=== PATIENT | female | born 1965 | race Caucasian/White ===

== ENCOUNTER 2018-07-09 12:58 | Emergency (ER) | payer BC ==
[2018-07-09 13:19] LABS: #Basophils 0.1 thou/uL (0.0-0.2); #Lymphocytes 1.5 thou/uL (1.20-3.40); #Monocytes 0.3 thou/uL (0.11-0.59); #Neutrophils 10.9 thou/uL (1.40-6.50); %Basophils 0.5 % (0.0-1.0); %Eosinophils 0.2 % (0.0-10.0); %Lymphocytes 11.3 % (21.0-51.0); %Monocytes 2.5 % (0.0-10.0); %Neutrophils 85.5 % (42.0-75.0); Hemoglobin 14.8 g/dL (12.0-16.0); Mean Corpuscular HGB CONC 33.4 g/dL (32.0-36.0); Mean Corpuscular Hemoglobin 32.9 pg (27.0-31.0); Mean Corpuscular Volume 98.6 fL (78.0-98.0); Mean Platelet Volume 7.4 fL (7.4-10.4); Platelet Count 381 thou/uL (130-400); White Blood Cell (WBC) Count 12.8 thou/uL (4.8-10.8)
[2018-07-09 13:41] LABS: ALT (SGPT) 28 U/L (8-55); AST (SGOT) 30 U/L (5-34); Albumin 5.1 g/dL (3.5-5.0); Alkaline Phosphatase 67 U/L (40-150); Anion Gap 16 mmol/L (10-20); BUN (Urea Nitrogen) 14 mg/dL (9.8-20.1); Bilirubin, Total 0.7 mg/dL (0.2-1.2); Calc. Creatinine Clearance 0 mL/min (70-130); Calcium 10.1 mg/dL (7.8-10.44); Carbon Dioxide 22 mmol/L (22-29); Chloride 107 mmol/L (98-107); Estimated GFR-MDRD 82; Globulin 3.1 g/dL (2.4-3.5); Glucose 141 mg/dL (70-105); Lipase 23 U/L (8-78); Potassium 3.8 mmol/L (3.5-5.1); Protein, Total 8.2 g/dL (6.0-8.3); Sodium 141 mmol/L (136-145)
[2018-07-09 14:18] LABS: CKMB 6.1 ng/mL (0-6.6); Troponin I Less than 0.010 ng/mL (< 0.028)
[2018-07-09] MEDS ORDERED: Morphine 4 MG/ML VIAL ONE (14:32)
[2018-07-09] MEDS ORDERED: Ondansetron HCl/PF 4 MG/2 ML Vial ONE ×2 (14:32→15:59)
[2018-07-09] MEDS ORDERED: ISOVUE-370 76%-LOCM 1 ML ONE (15:16)
--- NOTE | 2018-07-09 16:00 | CT ---
CONTRAST ENHANCED ABDOMEN AND PELVIS CT: Date: 07/09/18 INDICATION: Abdominal pain with vomiting. FINDINGS: There is moderate distention of the gallbladder. The liver and spleen are unremarkable. No peripancre atic inflammation. There is no hydronephrosis or adrenal mass. The bowel is not reliably evaluated wi thout enteric contrast. No pneumoperitoneum or portal vein gas. No significant ascites. There is a gr ossly unremarkable appearance of the mildly distended unopacified urinary bladder. Within the visuali zed lung bases, no consolidation or effusion evident. Mild degenerative change in the regional skelet al structures seen. There is mild colonic diverticulosis. There is mild scattered vascular calcificat ion. IMPRESSION: 1. Moderate distention of the gallbladder. 2. Mild colonic diverticulosis, although the bowel is not reliably assessed without enteric contrast administration. 3. Additional details are described above. POS: IRENE
[2018-07-09 16:36] LABS: Bilirubin Negative (Negative); Blood, Urine Negative (Negative); Clarity CLEAR (Clear); Glucose, Urine (Dipstick) Negative (Negative); Leukocyte Negative (Negative); Nitrite Negative (Negative); Protein, Urine (Dipstick) Negative (Neg-Trace); Urobilinogen 0.2 mg/dL (0.2-1.0); pH, Urine 7.5 (5.0-9.0)
[2018-07-09 16:39] LABS: Specific Gravity, Urine 1.055 (1.002-1.036)
--- NOTE | 2018-07-09 18:05 | ULT ---
GALLBLADDER ULTRASOUND: History: Right upper quadrant pain. FINDINGS: Real-time imaging of the right upper quadrant shows a mildly distended gallbladder. No gallbladder wa ll thickening or stones are identified. The liver measures 17.8 cm in length, a focal finding. The co mmon duct is 3 mm. Technologist reports some mild tenderness over the gallbladder. Pancreas is fairly well imaged and unremarkable. Right kidney is normal in size and not obstructed. IMPRESSION: No evidence of gallstones. Mild tenderness is noted over the gallbladder region. POS: IRENE
== END 2018-07-09 17:05 | disposition home or self-care (01) ==
LOC: EEVIPCON 12:58 → ERS 12:58
DX: R11.2 Nausea with vomiting, unspecified (principal); R10.31 Right lower quadrant pain; F32.9 Major depressive disorder, single episode, unspecified; F41.9 Anxiety disorder, unspecified; Z79.899 Other long term (current) drug therapy
CPT/HCPCS: 36415; 74177; 76705; 80053; 81003; 82553; 83690; 84484; 85025; 93005; 96361; 96374; 96375; 96376; J2270; J2405

== ENCOUNTER → 2020-06-03 | Day surgery (SDC) | payer BC ==
[~2020-06-03] MED LIST: Bupivacaine PF 0.5% 30 ML VIAL ONE; Fentanyl 100 MCG/2 ML VIAL ONE; Glycopyrrolate 0.2 MG/ML 5 ML SYRINGE ONE; HYDROcodone/Acetaminophen 5/325 mg Tablet ONE; Ketorolac Tromethamine 30 MG/ML VIAL ONE; Lidocaine 1% PF 5 ML VIAL ONE; Lidocaine 1% w/Epinephrine 1:100K 20 ML VIAL ONE; Ondansetron PF 4 MG/2 ML Vial ONE; PROPOFOL 200 MG/20 ML VIAL ONE; Rocuronium Bromide 10 MG/ML (10ML VIAL) ONE
--- NOTE | 2020-06-03 18:04 | HP ---
HISTORY OF PRESENT ILLNESS: Milo Evans is a 54-year-old female with several years history of intermittent epigastric right upper quadrant pain, back radiation. On this occasion, it was very severe. She presented to the [facility]. In the ER, underwent CAT scan of the abdomen and pelvis revealing inflammatory changes about the gallbladder, suggestive of acute cholecystitis. Clinically, she had an exam for acute cholecystitis. She is transferred to this facility for laparoscopic cholecystectomy. She reports that at this facility in 2018, she was seen in the emergency room. Gallbladder ultrasound obtained, revealed no evidence of gallstones, but sonographic positive Ballesteros sign. CT scan of the abdomen and pelvis in June 2018, revealed distention of the gallbladder, diverticulosis. The patient apparently saw Gastroenterology, has had a colonoscopy. ALLERGIES: PENICILLIN. TOBACCO: None. ALCOHOL: Rarely. MEDICATIONS: Thyroid replacement. PAST SURGICAL HISTORY: Ectopic , transvaginal hysterectomy, and colonoscopy. PAST MEDICAL HISTORY: Hypothyroidism. REVIEW OF SYSTEMS: Ten-point noncontributory. FAMILY HISTORY: Noncontributory. PHYSICAL EXAMINATION: VITAL SIGNS: Blood pressure 128/72, heart rate 78, respiratory rate 18. HEENT: Sclerae nonicteric. SKIN: Nonjaundiced. LUNGS: Clear to auscultation. CARDIAC: Regular rate and rhythm without murmur or gallop. ABDOMEN: Soft. Tenderness in her epigastric right upper quadrant. Positive Ballesteros sign. Abdomen is nondistended EXTREMITIES: Unremarkable. No ankle edema. NEUROLOGIC: Intact. No focal deficits. Cranial nerves intact. LYMPHS: No lymphadenopathy in neck, axillae, or groins. SKIN: Nonjaundiced. LABORATORY DATA: Laboratories at [facility], [place]; CBC and comprehensive metabolic panel normal. Mild elevation of transaminases. Normal bilirubin. ASSESSMENT AND PLAN: History, exam, and CAT scan findings consistent with cholecystitis, gallstones are not seen, but she has inflammatory changes about the gallbladder and distended gallbladder, pericholecystic fluid, thickened gallbladder wall. We would recommend laparoscopic video cholecystectomy. She understands risks of infection, bleeding, visceral or biliary injury discussed and she consents. Job ID: [id number]
--- NOTE | 2020-06-03 19:44 | OP ---
DATE OF PROCEDURE: 06/03/2020 PREOPERATIVE DIAGNOSIS: Acute cholecystitis. POSTOPERATIVE DIAGNOSIS: Acute cholecystitis. PROCEDURE PERFORMED: Laparoscopic video cholecystectomy. ANESTHESIA: General, local 0.5% Marcaine 30 mL mixed with 1% Xylocaine with epinephrine 20 mL, 30 mL mixture used. DESCRIPTION OF PROCEDURE: The patient was taken to the operating room, where under general anesthesia, abdomen was prepared with ChloraPrep and draped in routine fashion. Local anesthetic was infiltrated in the skin and subcutaneous tissue about each port site. Infraumbilical incision made. Pneumoperitoneum to 15 mmHg obtained with a Veress needle, replaced with a 5 port, video laparoscope inserted. Right subxiphoid incision was made and 11 port placed, right subcostal incision made. At midclavicular and anterior axillary line, the 5 ports placed. Liver appeared to be normal grossly. The abdominal cavity was unremarkable. Gallbladder was acutely inflamed and edematous. Fundus was grasped and retracted cephalad. The infundibulum was grasped and retracted laterally. Cystic artery and duct dissected free. Critical view obtained. Cystic artery and duct doubly clipped proximally, divided, gallbladder dissected free from edematous attachments and gallbladder bed, removing the gallbladder and contents, submitted to Pathology, good hemostasis ensured in the liver bed. Irrigant and pneumoperitoneum were evacuated. All instruments were removed and all skin incisions were approximated with interrupted subdermal 4-0 Monocryl and [place] glue applied. Job ID: [id number]
== END ==
LOC: SDC/OP 17:18
PROVIDERS: ATTEND Specialist
PROC: 0FT44ZZ Resection of Gallbladder, Percutaneous Endoscopic Approach (ICD-10-PCS; principal; 2020-06-03)
DX: K80.12 Calculus of gallbladder with acute and chronic cholecystitis without obstruction (principal); E03.9 Hypothyroidism, unspecified; Z79.899 Other long term (current) drug therapy; Z80.0 Family history of malignant neoplasm of digestive organs
CPT/HCPCS: 88304; J1885; J2405; J2704; J3010; S0020

== ENCOUNTER 2020-08-06 13:28 | Outpatient (CLI) | payer BC ==
--- NOTE | 2020-08-06 15:40 | ULT ---
ULTRASOUND SOFT TISSUE CHEST WALL: HISTORY: Palpable abnormality at the sternoclavicular joint on the right. FINDINGS/IMPRESSION: Sonographic evaluation of the region of palpable concern demonstrates no evidence of mass. POS: OFF
== END 2020-08-06 13:29 | disposition home or self-care (01) ==
LOC: BICULT 13:28
PROVIDERS: ATTEND Family Medicine
DX: R22.1 Localized swelling, mass and lump, neck (principal)

== ENCOUNTER 2021-10-14 21:33 | Emergency (ER) | payer BC ==
[2021-10-14] MEDS ORDERED: Lorazepam 2 MG/ML VIAL ONE (22:58)
[2021-10-14] MEDS ORDERED: Ketorolac Tromethamine 30 MG/ML VIAL ONE (22:58)
[2021-10-14 23:23] LABS: #Lymphocytes 2.5 thou/uL (1.20-3.40); #Monocytes 0.6 thou/uL (0.11-0.59); #Neutrophils 5.5 thou/uL (1.40-6.50); %Basophils 0.5 % (0.0-1.0); %Eosinophils 0.3 % (0.0-10.0); %Lymphocytes 29.4 % (21.0-51.0); %Monocytes 6.6 % (0.0-10.0); %Neutrophils 63.2 % (42.0-75.0); Hemoglobin 16.8 g/dL (12.0-16.0); Mean Corpuscular HGB CONC 34.2 g/dL (32.0-36.0); Mean Corpuscular Hemoglobin 34.4 pg (27.0-31.0); Mean Platelet Volume 7.7 fL (7.4-10.4); Platelet Count 339 thou/uL (130-400); RBC Distribution Width 12.9 % (11.5-14.5); Red Blood Cell (RBC) Count 4.88 mill/uL (4.20-5.40); White Blood Cell (WBC) Count 8.6 thou/uL (4.8-10.8)
[2021-10-14] MEDS ORDERED: Ondansetron PF 4 MG/2 ML Vial ONE (23:34)
[2021-10-14 23:37] LABS: ALT (SGPT) 43 U/L (8-55); AST (SGOT) 51 U/L (5-34); Albumin 5.1 g/dL (3.5-5.0); Alkaline Phosphatase 85 U/L (40-110); Anion Gap 18 mmol/L (10-20); BUN (Urea Nitrogen) 7 mg/dL (9.8-20.1); Bilirubin, Total 0.8 mg/dL (0.2-1.2); CRP (Inflammatory) Less than 0.50 mg/dL (= or < 0.5); Calc. Creatinine Clearance 0 mL/min (70-130); Calcium 10.3 mg/dL (7.8-10.44); Carbon Dioxide 22 mmol/L (22-29); Chloride 102 mmol/L (98-107); Globulin 3.3 g/dL (2.4-3.5); Glucose 105 mg/dL (70-105); Potassium 3.9 mmol/L (3.5-5.1); Protein, Total 8.4 g/dL (6.0-8.3); Sodium 138 mmol/L (136-145)
== END 2021-10-15 00:20 | disposition home or self-care (01) ==
LOC: ERS 21:33
DX: U07.1 COVID-19 (principal); E86.0 Dehydration; Z79.899 Other long term (current) drug therapy
CPT/HCPCS: 71045; 80053; 83605; 84484; 85025; 85652; 86140; 93005; 96374; 96375; J1885; J2060; J2405